=== PATIENT | female | born 1970 | race Caucasian/White ===

== ENCOUNTER 2024-07-13 09:03 | Emergency (ER) | payer BC, SELFPAY ==
[2024-07-13 09:05] VITALS: BP 170/93
[2024-07-13 09:23] VITALS: BMI 29.9
--- NOTE | 2024-07-13 09:29 | ED.GENMED ---
History of Present Illness
General
Chief Complaint: Abdominal Pain
Source: patient
Time Seen by Provider: 07/13/24 09:14
History of Present Illness
History of Present Illness:
54-year-old female presents emergency room complaining of crampy abdominal pain, bloody diarrhea as well as some nausea. Symptoms began yesterday. Patient has not traveled recently. She has not taken any antibiotics recently. Pets in the house
consist of only 1 dog. They use bottled water exclusively. Patient denies any history of inflammatory bowel disease. Patient states that symptoms began yesterday with some nausea and crampy abdominal pain. This was followed by loose stool which
was nonbloody and not mucousy. As the evening went on she began to notice that she was passing small volumes of bloody appearing stool. Last episode was this morning.
Past History
Past History
ED Past Medical History: None
ED Past Surgical History: None
Phy Exam
Physical Exam
Physical Exam:
General: Awake, Alert, Oriented X3. No acute distress.
Vitals: unremarkable
Head: Atraumatic
Eyes: Pupils equal, EOMI
Throat: Airway intact, no exudates, dry mucosa
Neck: Trachea midline
Lungs: Clear and equal b/l
Heart: Regular rate, no murmurs
Abd: Soft, minimal tenderness diffusely, No pulsatile mass
Rectal:
Neuro: Nonfocal
Skin: Warm, dry, no rash
Extremities: pulses equal b/l, no edema
Course
Orders/Labs/Results
Orders:
Orders
07/13/24 09:28
0.9% Sodium Chloride 500 ml [Nss] 500 ml IV BOLUS
Ondansetron Injectable [Zofran] 4 mg IV NOW STA
07/13/24 09:29
CT Abd/Pel (IV only)-DH only Urgent
Comment:
Reason For Exam: lower abd pain, blood stool
07/13/24 09:33
Complete Blood Count/With Diff Urgent
Comprehensive Metabolic Panel Urgent
07/13/24 11:14
Stool Culture Urgent
S[facility] Source: Feces/Stool
Specimen Description:
Date Specimen was Collected: 07/13/24
Time Specimen was Collected: 11:11
07/13/24 12:49
Dicyclomine [Bentyl] 20 mg PO NOW STA
Abnormal Lab Results
07/13/24
09:33
RBC 4.02 L 10^6/uL
(4.20-5.40)
Hct 35.5 L %
(37.0-47.0)
Lymphocytes % 19.5 L %
(20.5-51.1)
Glucose 120 H mg/dl
(70-99)
07/13/24 09:33
07/13/24 09:33
Vital Signs
Initial and Last Documented VS:
Initial Vital Signs
Temp Pulse Resp BP Pulse Ox
98.3 F 104 16 170/93 98
07/13/24 09:05 07/13/24 09:05 07/13/24 09:05 07/13/24 09:05 07/13/24 09:05
Last Documented Vital Signs
Temp Pulse Resp BP Pulse Ox
98.3 F 66 15 109/75 94
07/13/24 09:05 07/13/24 12:00 07/13/24 12:00 07/13/24 12:00 07/13/24 09:43
MDM/Problems Addressed
Differential Diagnosis Includes:
Diverticulitis, infectious colitis (bacterial versus viral), inflammatory bowel disease
MDM/Problems Addressed:
Patient presents with small amounts of bloody diarrhea frequently. Labs are normal white count. CT shows focal area of colitis. Radiologist suggest ischemic colitis as part of the differential however the patient does not at all appear to have
ischemic colitis on a presentation. I believe this is much more likely infectious colitis. Stool culture sent. Will withhold antibiotics at this point pending culture in case this is E. coli or other pathogen that might be made worse by
antibiotics.
*Radiology
Radiology exam reviewed: radiology read reviewed
*Critical Care Note
Total Time (30-74mins, 75-104mins- exclusive of procedures): Not Applicable
ED Attending Note
-
Portions of this chart may have been created with voice recognition software.� Occasional wrong word or��sound alike� substitutions may have occurred due to the inherent limitations of voice recognition software.
Discharge Plan
Departure
Patient Disposition: Home (Routine Discharge)
Date of Disposition: 07/13/24
Time of Disposition: 12:37
Patient with high blood pressure during this ER visit?: No
Condition: Good
Discharge Problem:
Acute infectious diarrhea
Instructions: Bloody stools in adults
Prescriptions:
New
dicyclomine 20 mg tablet
20 mg PO QID PRN (Reason: abdominal pain) Qty: 14 0RF
Referrals:
Neal Pablo DO [Family Provider] -
Activity Restrictions/Additional Instructions:
Your CT scan shows changes likely related to an infection. We typically do not treat with antibiotics because some types of infections get much worse with antibiotics. If your culture grows something that would benefit from a antibiotic we will
contact you and call a prescription in. Return if you feel you are getting worse.
Interventions
Interventions:
*Risk Screen - Suicide Last Done: 07/13/24 09:25
*Neglect/Abuse Screening Last Done: 07/13/24 09:25
ED- Fall Risk Assessment Last Done: 07/13/24 09:25
*ED COVID-19 Vaccine History Last Done: 07/13/24 09:25
*Nursing Disposition Last Done: 07/13/24 12:58
UJ-Hhobzg-Kgnzydmusg Assessment Last Done: 07/13/24 09:25
Discharge Date and Time
Discharge Date/Time: 07/13/24 12:59
Print Language: AZERI
[2024-07-13] MEDS: NSS 500 IV (09:39)
[2024-07-13] MEDS: ZOFRAN 4 MG IV (09:39)
[2024-07-13 09:43] LABS: % Basophils 0.5 % (0-2); % Eosinophils 0.3 % (0-6); % Immature Granulocytes 0.3 % (0-0.5); % Lymphocytes 19.5 % (20.5-51.1); % Monocytes 5.5 % (1.7-9.3); % Neutrophils 73.9 % (42.2-75.2); Absolute Lymphocytes 1.5 10^3/uL (1.2-3.4); Absolute Monocytes 0.4 10^3/uL (0.1-0.6); Absolute Neutrophils 5.6 10^3/uL (1.4-6.5); Hematocrit 35.5 % (37.0-47.0); Hemoglobin 12.3 g/dL (12.0-16.0); Mean Corp Hgb Conc. 34.6 g/dL (33.0-37.0); Mean Corpuscular Hgb 30.6 pg (27.0-31.0); Mean Corpuscular Volume 88.3 fL (81.0-99.0); Mean Platelet Volume 10.2 fL (7.4-10.4); Nucleated Red Blood Cells % 0 %; Platelet Count 207 10^3/uL (130-400); Red Blood Cell Count 4.02 10^6/uL (4.20-5.40); Red Cell Dist. Width 12.6 % (11.5-14.5); White Blood Cell Count 7.5 10^3/uL (4.8-10.8)
[2024-07-13 09:52] LABS: ALT (SGPT) 18 U/L (0-35); AST (SGOT) 23 U/L (14-36); Albumin 4.4 g/dl (3.5-5.0); Alkaline Phosphatase 44 U/L (38-126); Blood Urea Nitrogen 13 mg/dl (7-17); Calcium 9.2 mg/dl (8.4-10.2); Carbon Dioxide 23 mmol/L (22-30); Chloride 104 mmol/L (98-107); Estimated Creatinine Clearance 102 ml/min; Glucose 120 mg/dl (70-99); Sodium 139 mmol/L (135-145); Total Bilirubin 0.6 mg/dl (0.2-1.3); Total Protein 6.9 g/dl (6.3-8.2); eGFR > 60.00
[2024-07-13 10:00] VITALS: BP 120/81
[2024-07-13 11:05] VITALS: BP 138/87
[2024-07-13 12:00] VITALS: BP 109/75
[2024-07-13] MEDS: BENTYL 20 MG PO (12:52)
== END 2024-07-13 12:59 | disposition home or self-care (01) ==
LOC: EMR 09:03
PROVIDERS: EMERGENCY PHYSICIAN Emergency Medicine; FAMILY PHYSICIAN Family Medicine
DX: A09 Infectious gastroenteritis and colitis, unspecified (principal)
CPT/HCPCS: 99285; 96374; 96361 ×2; 74177; 80053; 85025; 87045; 87046; 87077; 87427; Q9967

== ENCOUNTER 2024-11-06 18:09 | Emergency (ER) | payer BC, SELFPAY ==
[2024-11-06 18:12] VITALS: BP 164/89
--- NOTE | 2024-11-06 20:34 | ED.GENMED ---
History of Present Illness
General
Chief Complaint: Bowel Problem
Source: patient
Exam Limitations: none
Time Seen by Provider: 11/06/24 20:02
Nursing documentation reviewed up to this point in time: agreed with
History of Present Illness
History of Present Illness:
54 Y/O F with no chronic medical problems
has had some hemorrhoids beffore and does sometimes get ocnstipated
has bee doin ga lot of sitting and maybe not drinkning as many fluids recently
started to feel like her stools were becoming firm yesterday with small balls
today afround 3 pm she felt urge to defecate and couldn't really and got nauseated and a lot of rectal pressure
she hsa had waves of nausea and pain since; she feels a lot of pressure in her rectum
no bleeding, vomiting, fever
she has never had abdominal surgery
has never had colonoscopy
has been told that she has a rectal prolaspse before by [facility]
Past History
Past History
ED Past Medical History: None
ED Past Surgical History: None
Social History
Tobacco: Non-smoker
Alcohol: None
Personal:
Living: with family
Review of Systems
Review of Systems
Allergies reviewed?: Yes
All Other Systems: Not applicable
Phy Exam
Physical Exam
Physical Exam:
GENERAL: Alert , anxious, uncomfortable
EYE: pupils equal and reactive
NECK: Supple
ENT: o/p clr, mmm.
CARDIAC: Regular rate and rhythm .
LUNGS: Clear breath sounds bilaterally, no acute respiratory distress, no wheezes/rales/rhonchi
ABDOMEN: Soft, without focal tenderness, no r/g, no cvat, normal bowel sounds
rectum: dilaution of the rectum but no obvious thrombosed hemorrhoid or prolapseshe has a very distal fecal rectal impaction
significant stool burden which was removed;
NEUROLOGICAL: Alert and oriented, no focal neuro deficits
SKIN: Warm and dry, skin intact.
MUSCULOSKELETAL: No edema, well perfused. neg liliana's sign
PSYCH: Normal and appropriate interaction.
Course
Orders/Labs/Results
Orders:
Orders
11/06/24 20:33
Bladder Scan- Treatment ONCE
Ondansetron Orally Disint [Zofran Odt (Orally Disintegrating)] 4 mg PO NOW STA
Vital Signs
Initial and Last Documented VS:
Initial Vital Signs
Temp Pulse Resp BP Pulse Ox
36.5 C 105 20 164/89 100
11/06/24 18:12 11/06/24 18:12 11/06/24 18:12 11/06/24 18:12 11/06/24 18:12
Last Documented Vital Signs
Temp Pulse Resp BP Pulse Ox
36.5 C 79 18 129/84 97
11/06/24 18:12 11/06/24 22:03 11/06/24 21:30 11/06/24 22:03 11/06/24 22:03
MDM/Problems Addressed
Differential Diagnosis Includes:
constipation, rectal prolapse, hemorrhoid, urinary retention
MDM/Problems Addressed:
54 y/o F with hard stools starting yesterday
then today tried to have BM and felt stool stuck at bottom of rectum and then started having spasm pain
some nausea
pt is very anxious
sh e is uncomfortable
her abdomen was notnender
pt has fecal impaction which was easily removed
some dilated hemorrhoids
no bleeding
pt had bladder scan 400 pre-enema
which all was relieved after enema, which was sucessul; pt had no pain and felt better, just mild headache
offered tylenol and po fluids
dc home
she declined the xray
bladder scan < 50 ml
*Critical Care Note
Total Time (30-74mins, 75-104mins- exclusive of procedures): Not Applicable
ED Attending Note
-
Portions of this chart may have been created with voice recognition software.� Occasional wrong word or��sound alike� substitutions may have occurred due to the inherent limitations of voice recognition software.
Discharge Plan
Departure
Patient Disposition: Home (Routine Discharge)
Date of Disposition: 11/06/24
Time of Disposition: 21:51
Patient with high blood pressure during this ER visit?: No
Condition: Fair
Covid-19: Not Applicable
Discharge Problem:
Fecal impaction, Constipation
Instructions: Constipation, Adult (DC), Fecal Impaction (DC), BLOOD PRESSURE
Prescriptions:
No Action
dicyclomine 20 mg tablet
20 mg PO QID PRN (Reason: abdominal pain) Qty: 14 0RF
Referrals:
NONE,* [Family Provider] - Follow up in 2-3 days
Activity Restrictions/Additional Instructions:
EAT A HIGH FIBER DIET
TAKE METAMUCIL DAILY IN WATER TO HELP KEEP STOOLS SOFT
YOUR RECTUM CAN BE SORE, YOU CAN SOAK IN THE TUB OR DO SITZ BATHS FOR HEMRRHOIDS NEEDED
TAKE MIRALAX ONCE A DAY FOR 2-3 DAYS IN A ROW IF YOU STILL FEEL L IAIN YOU HAVE THE URGE TO POOP
RETURN FO RANY CONCERNS
MAKE SURE TO HAVE A COLONOSCOPY THIS [place].
Interventions
Interventions:
*Risk Screen - Suicide Last Done: 11/06/24 18:12
*General Assessment Last Done: 11/06/24 18:12
*Neglect/Abuse Screening Last Done: 11/06/24 18:12
ED- Fall Risk Assessment Last Done: 11/06/24 22:16
*ED COVID-19 Vaccine History Last Done: 11/06/24 21:30
*Nursing Disposition Last Done: 11/06/24 22:16
VY-Lophmb-Lhbttfkuyk Assessment Last Done: 11/06/24 20:58
Discharge Date and Time
Discharge Date/Time: 11/06/24 22:20
Print Language: FRENCH
[2024-11-06] MEDS: ZOFRAN ODT (ORALLY DISINTEGRATING) 4 MG PO (21:01)
[2024-11-06 22:03] VITALS: BP 129/84
== END 2024-11-06 22:20 | disposition home or self-care (01) ==
LOC: EMR 18:09
PROVIDERS: EMERGENCY PHYSICIAN Emergency Medicine
DX: K56.41 Fecal impaction (principal)
CPT/HCPCS: 99282